=== PATIENT | male | born 1955 | race Two or more races ===

== ENCOUNTER → 2016-09-06 | Day surgery (SDC) | payer OTHER ==
[~2016-09-06] VITALS: Ht 170.2 cm; Wt 73.9 kg
[~2016-09-06] MED LIST: ASPIRIN EC81 MG PO; COREG6.25 MG PO; LIPITOR20 M1 PO; LOSARTAN-HCTZ1 EAC2 PO; METFORMIN HCL850 MG PO
== END ==
LOC: GPOC 08-17 14:00 → GEND 06:52
PROC: 0DJD8ZZ Inspection of Lower Intestinal Tract, Via Natural or Artificial Opening Endoscopic (ICD-10-PCS; principal; 2016-09-06)
DX: Z12.11 Encounter for screening for malignant neoplasm of colon (principal); K64.4 Residual hemorrhoidal skin tags; I10 Essential (primary) hypertension; E78.00 Pure hypercholesterolemia, unspecified; E11.9 Type 2 diabetes mellitus without complications; M19.90 Unspecified osteoarthritis, unspecified site; Z79.899 Other long term (current) drug therapy; Z79.82 Long term (current) use of aspirin
CPT/HCPCS: J2001; J7030; J7120